=== PATIENT | female | born 1990 | race Caucasian/White ===

== ENCOUNTER 2018-08-15 06:23 | Emergency (ER) | payer MEDICAID ==
[~2018-08-15] VITALS: Ht 152.4 cm; Wt 57.2 kg
[2018-08-15 07:56] LABS: BASOPHILS # (AUTO) 0.03 x10^3/uL (0-0.1); BASOPHILS % (AUTO) 1 % (0-1); EOSINOPHILS # (AUTO) 0.15 x10^3/uL (0-0.4); EOSINOPHILS % (AUTO) 4 % (1-7); LYMPHOCYTES # (AUTO) 1.38 x10^3/uL (1-3.4); LYMPHOCYTES % (AUTO) 33 % (22-44); MD SCAN; MEAN CORPUSCULAR HEMOGLOBIN 29.9 pg (27.0-34.8); MEAN CORPUSCULAR HGB CONC 33.3 g/dL (32.4-35.8); MEAN CORPUSCULAR VOLUME 89.7 fL (80-100); MEAN PLATELET VOLUME 9.9 fL (7.4-10.4); MONOCYTES # (AUTO) 0.44 x10^3/uL (0.2-0.8); MONOCYTES % (AUTO) 10 % (2-9); NEUTROPHILS # (AUTO) 2.25 x10^3/uL (1.8-6.8); NEUTROPHILS % (AUTO) 53 % (42-75); PLATELET COUNT 149 x10^3/uL (130-400); RED BLOOD COUNT 4.37 x10^6/uL (3.82-5.3); RED CELL DISTRIBUTION WIDTH 13.5 % (9.6-15.2)
[2018-08-15 08:38] VITALS: BP 96/51
== END 2018-08-15 08:40 | disposition home or self-care (01) ==
LOC: ED 08:00
DX: O03.9 Complete or unspecified spontaneous abortion without complication (principal)
CPT/HCPCS: 36415; 76801; 84702; 85025; 86901; 99285

== ENCOUNTER 2018-08-22 16:35 | Emergency (ER) | payer MEDICAID ==
[~2018-08-22] VITALS: Ht 154.9 cm; Wt 56.7 kg
[2018-08-22 17:00] VITALS: BP 99/68
[2018-08-22 18:00] LABS: MICROSCOPIC INDICATED
[2018-08-22 18:02] LABS: CULTURE INDICATED? YES
== END 2018-08-22 18:21 | disposition home or self-care (01) ==
LOC: ED 18:10
DX: N30.00 Acute cystitis without hematuria (principal); K02.9 Dental caries, unspecified
CPT/HCPCS: 81001; 87086; 99284

== ENCOUNTER 2018-09-14 16:00 | Emergency (ER) | payer MEDICAID ==
[~2018-09-14] VITALS: Ht 154.9 cm; Wt 56.7 kg
[2018-09-14 16:15] VITALS: BP 105/65
[2018-09-14 16:53] LABS: BASOPHILS # (AUTO) 0.03 x10^3/uL (0-0.1); BASOPHILS % (AUTO) 0 % (0-1); EOSINOPHILS # (AUTO) 0.11 x10^3/uL (0-0.4); EOSINOPHILS % (AUTO) 2 % (1-7); LYMPHOCYTES # (AUTO) 1.76 x10^3/uL (1-3.4); LYMPHOCYTES % (AUTO) 24 % (22-44); MD NO; MEAN CORPUSCULAR HEMOGLOBIN 30.6 pg (27.0-34.8); MEAN CORPUSCULAR HGB CONC 34.3 g/dL (32.4-35.8); MEAN CORPUSCULAR VOLUME 89.3 fL (80-100); MEAN PLATELET VOLUME 10.2 fL (7.4-10.4); MONOCYTES # (AUTO) 0.52 x10^3/uL (0.2-0.8); MONOCYTES % (AUTO) 7 % (2-9); NEUTROPHILS # (AUTO) 5.01 x10^3/uL (1.8-6.8); NEUTROPHILS % (AUTO) 67 % (42-75); PLATELET COUNT 157 x10^3/uL (130-400); RED BLOOD COUNT 4.57 x10^6/uL (3.82-5.3); RED CELL DISTRIBUTION WIDTH 14.1 % (9.6-15.2)
[2018-09-14 17:01] LABS: ALBUMIN 3.9 g/dL (3.4-5.0); ANION GAP 9 mmol/L (5-15); CALCIUM 8.4 mg/dL (8.5-10.1); CHLORIDE 110 mmol/L (98-107)
[2018-09-14 17:02] LABS: CULTURE INDICATED? YES; MICROSCOPIC INDICATED
[2018-09-14 17:05] LABS: ALANINE AMINOTRANSFERASE 19 U/L (12-78); ALKALINE PHOSPHATASE 48 U/L (45-117); BILIRUBIN,TOTAL 0.5 mg/dL (0.2-1.0); CREATININE 0.52 mg/dL (0.55-1.02); TOTAL PROTEIN 7.3 g/dL (6.4-8.2)
== END 2018-09-14 20:42 | disposition home or self-care (01) ==
LOC: ED 16:58
DX: O03.4 Incomplete spontaneous abortion without complication (principal)
CPT/HCPCS: 36415; 76830; 80053; 81001; 81025; 84702; 85025; 87086; 99285

== ENCOUNTER 2019-02-23 20:53 | Outpatient (CLI) | payer MEDICAID ==
[~2019-02-23] VITALS: Ht 154.9 cm; Wt 59.1 kg
[2019-02-23 21:27] LABS: MICROSCOPIC NOT IND
[2019-02-23 21:30] VITALS: BP 99/52
[2019-02-23 21:47] LABS: AMPHETAMINE SCREEN, URINE Negative (Negative); BARBITURATE SCREEN, URINE Negative (Negative); BENZODIAZEPINE SCREEN, URINE Negative (Negative); CANNABINOID SCREEN, URINE Positive (Negative); COCAINE SCREEN, URINE Negative (Negative); METHADONE SCREEN, URINE Negative (Negative); OPIATE SCREEN, URINE Negative (Negative)
[2019-02-23] MEDS ORDERED: PREN1TAB60 PO (22:00)
== END 2019-02-23 22:10 | disposition home or self-care (01) ==
LOC: LDOP 20:53
PROVIDERS: ATTEND Obstetrics & Gynecology
DX: O26.892 Other specified pregnancy related conditions, second trimester (principal); Z3A.26 26 weeks gestation of pregnancy; M54.5 Low back pain
CPT/HCPCS: 59025; 80307; 81003; 99211; G0463

== ENCOUNTER 2019-04-12 07:20 | Emergency (ER) | payer MEDICAID ==
[~2019-04-12] VITALS: Ht 154.9 cm; Wt 69.8 kg
[~2019-04-12 07:20] MED LIST: PREN1TAB60 PO
[2019-04-12 07:24] VITALS: BP 109/68
[2019-04-12] MEDS ORDERED: ACETAMINOPHEN 500 MG TABLET ONE (08:32)
[2019-04-12] MEDS ORDERED: ACETAMINOPHEN 500 MG TABLET PO ONE (09:00)
== END 2019-04-12 08:55 | disposition home or self-care (01) ==
LOC: ED 08:48
DX: K02.9 Dental caries, unspecified (principal)
CPT/HCPCS: 99283